=== PATIENT | male | born 1985 | race Caucasian/White ===

== ENCOUNTER 2018-06-16 22:48 | Emergency (ER) | payer OTHER ==
[2018-06-17] MEDS: KETOROLAC 60 MG INJ IM (01:29)
[2018-06-17] MEDS: DEXAMETHASONE 10 MG/ML 1 ML INJ IM (01:30)
[2018-06-17] MEDS: LORAZEPAM 1 MG TAB PO (01:30)
== END 2018-06-17 02:35 | disposition home or self-care (01) ==
LOC: FTE 22:48
DX: M54.42 Lumbago with sciatica, left side (principal); F17.210 Nicotine dependence, cigarettes, uncomplicated
CPT/HCPCS: 96372; 99284-25